=== PATIENT | female | born 1950 | race Caucasian/White ===

== ENCOUNTER 2022-12-13 18:12 | Inpatient (IN) ==
[2022-12-13 18:43] LABS: Basophils % 0.2 % (0.0-0.8); Eosinophils % 0.1 % (0.00-10.9); Hematocrit 26.4 VOL% (35.7-47.0); Hemoglobin 8.4 GM/DL (12.0-16.0); Immature Granulocytes % 0.5 %; Immature Granulocytes Absolute 0.04 #; Lymphocytes # 1.7 10*3/uL (1.4-4.0); Lymphocytes % 19.4 % (21.3-54.2); Mean Corpuscular HGB Conc 31.8 GM/DL (32-36); Mean Corpuscular Volume 103.9 FL (87-102); Mean Platelet Volume 9.2 FL (9.6-12.0); Monocytes # 0.7 10*3/uL (0.11-0.8); Monocytes % 7.9 % (1.7-12.7); Neutrophils % 71.9 % (38.7-73.9); Platelet Count 278 T/CUMM (130-400); Red Blood Count 2.54 MC/CUMM (3.8-5.5); Red Cell Distribution Width 13.8 % (9.3-17.3); White Blood Count 8.6 T/CUMM (4-12)
[2022-12-13 18:51] LABS: INR 1.1; PT Patient Result 12.1 SECS (10.1-12.1); Partial Thromboplastin Time 29.3 SECS (23.7-32.9)
[2022-12-13 18:55] LABS: Alanine Aminotransferase 19 U/L (13-56); Albumin 2.8 G/DL (3.4-5.0); Alkaline Phosphatase 56 U/L (45-117); Aspartate Amino Transferase 12 U/L (0-37); Bilirubin,Total < 0.39 MG/DL (0.20-1.00); Blood Urea Nitrogen 74 MG/DL (7-18); Carbon Dioxide 29 MMOL/L (21-32); Chloride 109 MMOL/L (98-107); Glucose 140 MG/DL (74-106); Osmolality,Calculated 304.3 MOS/KG (273-304); Potassium 4.5 MMOL/L (3.5-5.1); Sodium 141 MMOL/L (136-145); Total Protein 5.5 G/DL (6.4-8.2)
[2022-12-13 19:30] LABS: RBC,Urine 2 /HPF (0-4); Squamous Epithelial Cell,Urine Occasional /HPF (0-10)
[2022-12-13 19:31] LABS: Bilirubin,Urine Negative (Negative); Blood, Urine Trace mg/dL (Negative); Glucose,Urine (UA) Negative (Negative); Ketones,Urine Negative (Negative); Nitrite,Urine Negative (Negative); Protein,Urine Negative (Negative); Urine Appearance Clear (Clear); Urine Color Yellow (Yellow); Urine Specific Gravity 1.015 (1.001-1.035)
[2022-12-13 19:32] LABS: Urine Urobilinogen 0.2 eU/dL (<2.0)
[2022-12-13] MEDS ORDERED: HYDROmorphone 1 MG/1 ML SYRINGE IV STA (19:39)
[2022-12-13] MEDS ORDERED: PANTOPRAZOLE INJ 200 MG in SODIUM CHLORIDE 0.9% 250 ML IV SCH (21:00)
[2022-12-13] MEDS ORDERED: GLUCAGON 1 MG VIAL IM PRN (21:48)
[2022-12-13] MEDS ORDERED: ONDANSETRON 4 MG/2 ML VIAL IV PRN (21:48)
[2022-12-13] MEDS ORDERED: hydrALAZINE 20 MG/1 ML VIAL IV PRN (21:48)
[2022-12-13] MEDS ORDERED: DEXTROSE 10% 250 ML BAG IV PRN (22:13)
[2022-12-13] MEDS ORDERED: metroNIDAZOLE INJ 500 MG/100 ML PREMIX IV SCH (22:30)
[2022-12-14] MEDS: MORPHINE 2 MG/1 ML SYRINGE IV PRN ×5 (00:05→20:37)
[2022-12-14] MEDS: metroNIDAZOLE INJ 500 MG/100 ML PREMIX IV SCH ×3 (00:45→23:05)
[2022-12-14] MEDS: SODIUM CHLORIDE 0.9% 1,000 ML IV SCH ×2 (00:47→16:26)
[2022-12-14 06:19] LABS: Alanine Aminotransferase 19 U/L (13-56); Albumin 2.7 G/DL (3.4-5.0); Alkaline Phosphatase 54 U/L (45-117); Aspartate Amino Transferase 10 U/L (0-37); Bilirubin,Total < 0.39 MG/DL (0.20-1.00); Blood Urea Nitrogen 65 MG/DL (7-18); Calcium 9.3 MG/DL (8.5-10.1); Carbon Dioxide 23 MMOL/L (21-32); Chloride 110 MMOL/L (98-107); Glucose 120 MG/DL (74-106); Osmolality,Calculated 300.3 MOS/KG (273-304); Potassium 4.3 MMOL/L (3.5-5.1); Sodium 141 MMOL/L (136-145); Total Protein 5.6 G/DL (6.4-8.2)
[2022-12-14 06:21] LABS: Basophils % 0.3 % (0.0-0.8); Eosinophils % 0.4 % (0.00-10.9); Hematocrit 25.7 VOL% (35.7-47.0); Hemoglobin 8.1 GM/DL (12.0-16.0); Immature Granulocytes % 0.4 %; Immature Granulocytes Absolute 0.03 #; Lymphocytes # 2.1 10*3/uL (1.4-4.0); Lymphocytes % 29.6 % (21.3-54.2); Mean Corpuscular HGB Conc 31.5 GM/DL (32-36); Mean Platelet Volume 9.3 FL (9.6-12.0); Monocytes # 0.6 10*3/uL (0.11-0.8); Monocytes % 8.4 % (1.7-12.7); Neutrophils % 60.9 % (38.7-73.9); Platelet Count 249 T/CUMM (130-400); Red Blood Count 2.47 MC/CUMM (3.8-5.5); Red Cell Distribution Width 14.1 % (9.3-17.3); White Blood Count 7.2 T/CUMM (4-12)
[2022-12-14] MEDS: INSULIN LISPRO 100 UNIT/ML SUBCUT SCH ×4 (08:42→20:36)
[2022-12-14] MEDS ORDERED: SACUBITRIL/VALSARTAN 49-51 MG TABLET PO SCH (09:30)
[2022-12-14 09:54] LABS: Platelet Estimate Normal
[2022-12-14 09:55] LABS: Anisocytosis Slight; Macrocytosis Slight
[2022-12-14 10:18] LABS: Hematocrit 26.8 VOL% (35.7-47.0); Hemoglobin 8.1 GM/DL (12.0-16.0)
[2022-12-14] MEDS: NITROGLYCERIN SL 0.4 MG TABLET SL PRN ×3 (10:55→23:28)
[2022-12-14] MEDS: METOPROLOL TARTRATE 25 MG TABLET PO SCH ×2 (16:46→20:36)
[2022-12-14] MEDS: ATORVASTATIN 20 MG TABLET PO SCH (20:36)
[2022-12-14 21:36] LABS: Hematocrit 20.4 VOL% (35.7-47.0); Hemoglobin 6.6 GM/DL (12.0-16.0)
[2022-12-14] MEDS ORDERED: ALUMINUM/MAGNES/SIMETH MAX STR 30 ML UDCUP PO PRN (22:14)
[2022-12-14 23:35] LABS: Hematocrit 19.9 VOL% (35.7-47.0)
[2022-12-15 00:03] LABS: Hemoglobin 6.4 GM/DL (12.0-16.0)
[2022-12-15] MEDS ORDERED: SODIUM CHLORIDE 0.9% 1,000 ML IV PRN (00:05)
[2022-12-15] MEDS: MORPHINE 2 MG/1 ML SYRINGE IV PRN (01:29)
[2022-12-15] MEDS: metroNIDAZOLE INJ 500 MG/100 ML PREMIX IV SCH ×3 (06:26→21:59)
[2022-12-15] MEDS: INSULIN LISPRO 100 UNIT/ML SUBCUT SCH ×4 (08:37→20:52)
[2022-12-15 09:07] LABS: Hematocrit 24.9 VOL% (35.7-47.0); Hemoglobin 8.1 GM/DL (12.0-16.0)
[2022-12-15] MEDS: METOPROLOL TARTRATE 25 MG TABLET PO SCH ×2 (10:48→21:22)
[2022-12-15] MEDS: PANTOPRAZOLE 40 MG VIAL IV SCH ×2 (10:53→20:59)
[2022-12-15 17:53] LABS: Hemoglobin 8.6 GM/DL (12.0-16.0)
[2022-12-15] MEDS: ATORVASTATIN 20 MG TABLET PO SCH (21:22)
[2022-12-15] MEDS ORDERED: clonazePAM 0.5 MG TABLET PO SCH (21:30)
[2022-12-16] MEDS: metroNIDAZOLE INJ 500 MG/100 ML PREMIX IV SCH ×2 (06:02→14:37)
[2022-12-16] MEDS ORDERED: LACTATED RINGERS 1,000 ML IV SCH (06:30)
[2022-12-16 06:56] LABS: Hemoglobin 8.3 GM/DL (12.0-16.0)
[2022-12-16] MEDS: INSULIN LISPRO 100 UNIT/ML SUBCUT SCH ×2 (08:48→13:29)
[2022-12-16] MEDS: PANTOPRAZOLE 40 MG VIAL IV SCH (09:06)
[2022-12-16] MEDS: METOPROLOL TARTRATE 25 MG TABLET PO SCH (09:13)
[2022-12-16] MEDS ORDERED: LIDOCAINE 2% 5 ML VIAL ONE (12:09)
[2022-12-16] MEDS ORDERED: ETOMIDATE 20 MG/10 ML VIAL IV ONE (12:09)
[2022-12-16] MEDS ORDERED: propofoL 200 MG/20 ML VIAL IV ONE (12:09)
[2022-12-16 12:49] VITALS: BP 145/66
[2022-12-16] MEDS ORDERED: PANTOPRAZOLE 40 MG TABLET PO SCH (19:00)
== END 2022-12-16 16:42 | disposition home health service (06) | DRG 378 ==
LOC: N.ED 18:12 → N.EDINP 21:42 → SUATTDRO 21:42 → N.TELES 22:23
PROVIDERS: ADMIT Hospitalist; ATTEND Internal Medicine Geriatric Medicine